=== PATIENT | female | born 1980 | race Caucasian/White ===

== ENCOUNTER 2017-09-21 14:55 | Emergency (ER) | payer MEDICAID, OTHER ==
[~2017-09-21] VITALS: Ht 162.6 cm; Wt 117.9 kg
--- NOTE | 2017-09-21 15:26 | ED General ---
General Chief Complaint: Upper Extremity Stated Complaint: R ARM PAIN/SWELLING/POSS BLOOD CLOT Nursing Triage Note: Pt reports she was seen in ER at [facility] on 09/16 and had multiple IV infusions in R arm. Pt reports increased pain and swelling in R arm since discharge from . Pt states she is worried about a blood clot. Nursing Sepsis Screen: No Definite Risk Source of Information: Patient, Spouse Exam Limitations: No Limitations History of Present Illness Date Seen by Provider: Sep 21, 2017 Time Seen by Provider: 15:26 Initial Comments 37 year old female patient presents to the emergency department with concerns of having a blood clot in the right upper extremity. Patient was seen at the emergency department at [facility] on 09/16 with multiple IV medications given for migraine. Reports the next day she noticed increased pain and swelling to the right forearm. Has been taking ibuprofen without improvement in symptoms. Has not taken anything today for the pain. Timing/Duration: 5-6 Days, Constant Modifying Factors: worse with Medication (no improvement with ibuprofen) Allergies and Home Medications Allergies Coded Allergies: codeine (Unverified Allergy, Unknown, 09/21/17) nitrofurantoin (Unverified Allergy, Unknown, 09/21/17) Patient Home Medication List Home Medication List Reviewed: Yes Review of Systems Constitutional: No chills, No fever, No malaise EENTM: no symptoms reported Respiratory: No cough, No dyspnea on exertion, No orthopnea, No short of breath Cardiovascular: No chest pain, No palpitations Gastrointestinal: no symptoms reported Musculoskeletal: see HPI, joint pain (right forearm pain), joint swelling ( right forearm swelling) Skin: No change in color, No lesions, No lumps Psychiatric/Neurological: Denies Numbness, Denies Paresthesia; Pre-Existing Deficit (chronic migraines); Denies Tingling, Denies Weakness All Other Systems Reviewed Negative Unless Noted: Yes (Negative excepted noted.) Past Iirbwbp-Uagqbq-Wxbtkr Hx Past Med/Social Hx: Reviewed Nursing Past Med/Soc Hx Patient Social History Alcohol Use: Regular Use Recreational Drug Use: No Smoking Status: Current Someday Smoker Type Used: Cigars Recent Foreign Travel: No Contact w/Someone Who Travel: No Recent Infectious Disease Expo: No Recent Hopitalizations: No Seasonal Allergies Seasonal Allergies: No Past Medical History Surgeries: Yes (D&C, wisdom teeth) Appendectomy, Tubal Ligation Respiratory: No Cardiac: No Neurological: Yes Headaches /Migraines Genitourinary: No Gastrointestinal: No Musculoskeletal: No Endocrine: Yes Hypothyroidsim HEENT: No Cancer: No Psychosocial: Yes PTSD, Depression Blood Disorders: No Adverse Reaction/Blood Tranf: No Family Medical History Reviewed Nursing Family Hx No Pertinent Family Hx Physical Exam Vital Signs Vital Signs - First Documented 09/21/17 15:05 Temp 99.4 Pulse 97 Resp 18 B/P (MAP) 153/111 (125) Pulse Ox 94 O2 Delivery Room Air Capillary Refill : Less Than 3 Seconds Height, Weight, BMI Height: 5', 4.00" Weight: 260lbs oz, 117.312871mh Method:Stated ,BMI General Appearance: No Apparent Distress, WD/WN HEENT: PERRL/EOMI, Pharynx Normal Neck: Normal Inspection, Supple Respiratory: Lungs Clear, Normal Breath Sounds, No Accessory Muscle Use, No Respiratory Distress Cardiovascular: Regular Rate, Rhythm, No Murmur, Normal Peripheral Pulses Extremity: Normal Capillary Refill, Normal Range of Motion, Swelling (mild swelling of the right forearm noted with several firm, ropelike superficial veins noted. No evidence of erythema or warmth noted. Tender to palpation. Right Proximal arm is negative.) Neurologic/Psychiatric: Alert, Oriented x3, No Motor/Sensory Deficits, Normal Mood/Affect Skin: Normal Color, Warm/Dry Progress/Results/Core Measures Suspected Sepsis Recent Fever Within 48 Hours: No Infection Criteria Present: Suspected New Infection New/Unexplained Altered Menta: No Sepsis Screen: No Definite Risk SIRS Temperature:99.4 Pulse: 97 Respiratory Rate: 18 Blood Pressure 153 /111 Mean: 125 Results/Orders My Orders Orders - JORGE ALBERTO GARNER Us Venous Upper Ext Rt (09/21/17 15:21) Ibuprofen Tablet (Motrin Tablet) (09/21/17 15:36) Vital Signs/I&O 09/21/17 15:05 Temp 99.4 Pulse 97 Resp 18 B/P (MAP) 153/111 (125) Pulse Ox 94 O2 Delivery Room Air Capillary Refill : Less Than 3 Seconds Blood Pressure Mean: 125 Diagnostic Imaging Diagonstic Imaging: Ultrasound Plain Films/CT/US/NM/MRI: other (right upper extremity) Comments US VENOUS UPPER EXT RT INDICATION: Pain in posterior wrist and hand. EXAMINATION : Right upper extremity venous Doppler, 09/21/2017. FINDINGS: Waveform and spectral analysis of the right upper extremity performed with color Doppler imaging performed. There is nonocclusive thrombus noted within the basilic vein in the upper biceps region. This involves at least 7 cm in length as noted by the principal product manager. There is also focal thrombus within a branch of the basilic vein in the posterior wrist and hand at the site of previous IV. The remaining visualized venous structures appear patent. No other thrombus formation appreciated. IMPRESSION: Thrombus noted within the basilic vein and a branch in the distal basilic vein at the site of previous IV. No other thrombus formation appreciated. Dictated by: Dictated on workstation # [id number] Reviewed: Reviewed by Me (radiology report reviewed by me) Departure Communication (Admissions) diagnostic findings discussed with the patient. plan for dsch to home with f/u as an outpatient with dr. del toro for recheck. Impression Primary Impression: Superficial thrombophlebitis Qualified Codes: I80.8 - Phlebitis and thrombophlebitis of other sites Disposition: HOME, SELF-CARE Condition: Improved Departure-Patient Inst. Referrals: MILAGRO DEL TORO MD (PCP/Family) Primary Care Physician Patient Instructions: Superficial Phlebitis Add. Discharge Instructions: All discharge instructions reviewed with patient and/or family. Voiced understanding. Aspirin 325 mg by mouth twice daily. Naprosyn 500 mg twice daily. Tylenol extra strength rjqs-noh-qciqhaw as directed for pain. Elevate the right arm on pillows above the level of heart. Ice packs or heating pads as needed for pain and swelling. Follow-up with Dr. Del Toro as an outpatient for recheck and possible need for outpatient repeat ultrasound. Call for appointment time Friday. Return to the emergency department for worsened symptoms or any other concerns. JORGE ALBERTO GARNER Sep 21, 2017 15:26
[2017-09-21] MEDS ORDERED: IBUPROFEN 800 MG (MOTRIN) TAB PO STA (15:36)
--- NOTE | 2017-09-21 16:59 | Diagnostic Imaging Report ---
INDICATION: Pain in posterior wrist and hand. EXAMINATION: Right upper extremity venous Doppler, 09/21/2017. FINDINGS: Waveform and spectral analysis of the right upper extremity performed with color Doppler imaging performed. There is nonocclusive thrombus noted within the basilic vein in the upper biceps region. This involves at least 7 cm in length as noted by the party plan sales host/hostess. There is also focal thrombus within a branch of the basilic vein in the posterior wrist and hand at the site of previous IV. The remaining visualized venous structures appear patent. No other thrombus formation appreciated. IMPRESSION: Thrombus noted within the basilic vein and a branch in the distal basilic vein at the site of previous IV. No other thrombus formation appreciated. Dictated by: Dictated on workstation # [id number]
[2017-09-21 17:36] VITALS: BP 153/111
== END 2017-09-21 17:36 | disposition home or self-care (01) ==
LOC: ER 14:58
DX: I80.01 Phlebitis and thrombophlebitis of superficial vessels of right lower extremity (principal); F17.290 Nicotine dependence, other tobacco product, uncomplicated; G43.909 Migraine, unspecified, not intractable, without status migrainosus; E03.9 Hypothyroidism, unspecified; F32.9 Major depressive disorder, single episode, unspecified; F43.10 Post-traumatic stress disorder, unspecified; Z88.5 Allergy status to narcotic agent; Z88.8 Allergy status to other drugs, medicaments and biological substances; Z90.49 Acquired absence of other specified parts of digestive tract; Z98.51 Tubal ligation status

== ENCOUNTER 2018-06-05 13:08 | Emergency (ER) | payer MEDICAID, OTHER ==
[~2018-06-05] VITALS: Ht 162.6 cm; Wt 117.9 kg
[2018-06-05 14:09] LABS: BILIRUBIN,URINE NEGATIVE (NEGATIVE); CLARITY,URINE CLOUDY; COLOR,URINE YELLOW; GLUCOSE, URINE (UA) NEGATIVE (NEGATIVE); KETONES,URINE NEGATIVE (NEGATIVE); LEUKOCYTE ESTERASE ,URINE 3+ (NEGATIVE); NITRITE,URINE POSITIVE (NEGATIVE); PROTEIN,URINE NEGATIVE (NEGATIVE); UROBILINOGEN,URINE 0.2 MG/DL (NORMAL)
[2018-06-05 14:10] LABS: BACTERIA,URINE 4+ /HPF; RBC,URINE 0-2 /HPF; SQUAMOUS EPITHELIAL CELL,UR 25-50 /HPF; WBC,URINE >100 /HPF
[2018-06-05] MEDS ORDERED: SERT100T8 (14:11)
[2018-06-05] MEDS ORDERED: LIOT5TAB3 (14:11)
[2018-06-05] MEDS ORDERED: SUMA100T3 (14:11)
[2018-06-05] MEDS ORDERED: LEVO112T55 (14:11)
[2018-06-05] MEDS ORDERED: TOPI50TA13 (14:11)
[2018-06-05] MEDS ORDERED: LEVO100T7 (14:11)
[2018-06-05] MEDS ORDERED: TOPI25TA10 (14:11)
[2018-06-05] MEDS ORDERED: PROCHLORPERAZINE 10 MG/2ML INJ (COMPAZINE) IV ONE (15:30)
[2018-06-05] MEDS ORDERED: cefTRIAXone FOR IV USE 1,000 MG in WATER (STERILE) FOR INJECTION 10 ML IV ONE (15:30)
[2018-06-05] MEDS ORDERED: NS IV 1000 ML 1,000 ML IV SCH (15:30)
[2018-06-05] MEDS ORDERED: KETOROLAC 30 MG/ML VIAL IVP ONE (15:30)
[2018-06-05] MEDS ORDERED: DEXAMETHASONE 4 MG/ML SDV (DECADRON) IV ONE (15:30)
[2018-06-05] MEDS ORDERED: CEPH-507 PO (16:49)
[2018-06-05] MEDS ORDERED: ONDA4TAB11 PO (16:49)
--- NOTE | 2018-06-05 16:49 | ED GU-Female ---
General Chief Complaint: - Urinary Stated Complaint: HEADACHE; URINARY PAIN Nursing Triage Note: Has had a migraine for the past week. Saw Katy in the office on friday and received shots for migraine that have not helped. Has also recently been treated for UTI and is still having burning with urination. States she had a kidney infection once that her only symptom was a migraine. Nursing Sepsis Screen: No Definite Risk Source: patient Exam Limitations: no limitations History of Present Illness Date Seen by Provider: Jun 05, 2018 Time Seen by Provider: 16:43 Initial Comments Patient is a 37-year-old female with history of traumatic brain injury, chronic daily headaches/migraines who presents with multiple medical complaints. Patient reports persistent headache, dull, aching despite taking her nonnarcotic home medications. She also reports nausea and malaise, urinary frequency and urgency. She recently completed a 3 day course of Bactrim. She has had prior migraines triggered by urinary tract infections. No fever, chills , sweats. No chest pain, cough, abdominal pain. No other acute symptoms or complaints. Timing/Duration: just prior to arrival Severity/Quality: mild, moderate Radiation: left flank Associated Symptoms: dysuria Allergies and Home Medications Allergies Coded Allergies: codeine (Unverified Allergy, Unknown, 06/05/18) nitrofurantoin (Unverified Allergy, Unknown, 09/21/17) Patient Home Medication List Home Medication List Reviewed: Yes Review of Systems Review of Systems Constitutional: see HPI EENTM: see HPI Respiratory: see HPI Cardiovascular: see HPI Gastrointestinal: see HPI Genitourinary: see HPI Musculoskeletal: see HPI Skin: see HPI Psychiatric/Neurological: See HPI Past Ougahjm-Hwozwy-Kputbm Hx Patient Social History Alcohol Use: Denies Use Recreational Drug Use: No Smoking Status: Never a Smoker Type Used: Cigars Recent Foreign Travel: No Contact w/Someone Who Travel: No Recent Infectious Disease Expo: No Recent Hopitalizations: No Physical Abuse: No Sexual Abuse: No Mistreated: No Seasonal Allergies Seasonal Allergies: No Past Medical History Surgeries: Yes (D&C, wisdom teeth) Appendectomy, Tubal Ligation Respiratory: No Cardiac: No Neurological: Yes Headaches /Migraines, Traumatic Brain Injury Genitourinary: No Gastrointestinal: No Musculoskeletal: No Endocrine: Yes Hypothyroidsim HEENT: No Cancer: No Psychosocial: Yes PTSD, Depression Blood Disorders: No Adverse Reaction/Blood Tranf: No Family Medical History No Pertinent Family Hx Physical Exam Vital Signs Vital Signs - First Documented 06/05/18 13:30 Temp 98.6 Pulse 101 Resp 20 B/P (MAP) 150/92 (111) Pulse Ox 98 Capillary Refill : Less Than 3 Seconds Height, Weight, BMI Height: 5'4.00" Weight: 260lbs. oz. 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 II-XII nml as tested, no motor/sensory deficits, alert, normal mood/affect Skin: normal color Focused Exam Sepsis Stage: Ruled Out Progress/Results/Core Measures Suspected Sepsis Recent Fever Within 48 Hours: No Infection Criteria Present: None New/Unexplained Altered Menta: No Sepsis Screen: No Definite Risk SIRS Temperature:98.6 Pulse: 101 Respiratory Rate: 20 Blood Pressure 150 /92 Mean: 111 Results/Orders Lab Results Laboratory Tests Test 06/05/18 13:14 Range/Units Urine Color YELLOW Urine Clarity CLOUDY Urine pH 6.0 5-9 Urine Specific [place] 1.015 L 1.016-1.022 Urine Protein NEGATIVE NEGATIVE Urine Glucose (UA) NEGATIVE NEGATIVE Urine Ketones NEGATIVE NEGATIVE Urine Nitrite POSITIVE H NEGATIVE Urine Bilirubin NEGATIVE NEGATIVE Urine Urobilinogen 0.2 NORMAL MG/DL Urine Leukocyte Esterase 3+ H NEGATIVE Urine RBC (Auto) 1+ H NEGATIVE Urine RBC 0-2 /HPF Urine WBC >100 H /HPF Urine Squamous Epithelial Cells 25-50 H /HPF Urine Crystals NONE /LPF Urine Bacteria 4+ /HPF Urine Casts NONE /LPF Urine Mucus SMALL H /LPF Urine Culture Indicated YES Urine Test NEGATIVE NEGATIVE My Orders Orders - LINDA LR DO Ua Culture If Indicated (06/05/18 13:44) Hcg,Qualitative Urine (06/05/18 13:50) Urine Culture (06/05/18 13:14) Ns Iv 1000 Ml (Sodium Chloride 0.9%) (06/05/18 15:30) Ceftriaxone For Iv Use (Rocephin For I (06/05/18 15:30) Prochlorperazine Injection (Compazine In (06/05/18 15:30) Dexamethasone Injection (Decadron Inject (06/05/18 15:30) Ketorolac Injection (Toradol Injection) (06/05/18 15:30) Medications Given in ED Current Medications Medications Dose Ordered Sig/Jeramy Route Start Time Stop Time Status Last Admin Dose Admin Ceftriaxone Sodium 1000 mg/ Sterile Water 10 ml @ 200 mls/hr ONCE ONCE IV 06/05/18 15:30 06/05/18 15:32 DC 06/05/18 16:23 200 MLS/HR Dexamethasone Sodium Phosphate 8 mg ONCE ONCE IV 06/05/18 15:30 06/05/18 15:31 DC 06/05/18 16:16 8 MG Ketorolac Tromethamine 30 mg ONCE ONCE IVP 06/05/18 15:30 06/05/18 15:31 DC 06/05/18 16:16 30 MG Prochlorperazine Edisylate 10 mg ONCE ONCE IV 06/05/18 15:30 06/05/18 15:31 DC 06/05/18 16:16 10 MG Vital Signs/I&O 06/05/18 13:30 Temp 98.6 Pulse 101 Resp 20 B/P (MAP) 150/92 (111) Pulse Ox 98 Capillary Refill : Less Than 3 Seconds Blood Pressure Mean: 111 Departure Communication (Admissions) IV abx, fluids, antiemetics given with significant improvement symptoms Impression Primary Impression: Urinary tract infection Additional Impression: Intractable migraine Disposition: HOME, SELF-CARE Condition: Improved Departure-Patient Inst. Referrals: MILAGRO DEL TORO MD (PCP/Family) Primary Care Physician Patient Instructions: Urinary Tract Infection, Adult (DC) Scripts Ondansetron (Ondansetron Odt) 4 Mg Tab.rapdis 4 MG PO Q6H PRN for NAUSEA/VOMITING, #10 TAB Prov: LINDA LR DO 06/05/18 Cephalexin (Keflex) 500 Mg Capsule 500 MG PO TID, #21 CAP Prov: LINDA LR DO 06/05/18 Work/School Note: Family Work Note Patient Received Medical Care In the Emergency Department On: Jun 05, 2018 Patient Will Be Able to Return to Work/School On: Jun 05, 2018 Patient Restrictions: Please excuse patient from school until 06/08/18 LINDA LR DO Jun 05, 2018 16:49
[2018-06-05 17:19] VITALS: BP 134/84
== END 2018-06-05 17:20 | disposition home or self-care (01) ==
LOC: EDUNIT# 13:08 → ER FS 13:11
DX: N39.0 Urinary tract infection, site not specified (principal); G43.919 Migraine, unspecified, intractable, without status migrainosus; E03.9 Hypothyroidism, unspecified; F43.10 Post-traumatic stress disorder, unspecified; F32.9 Major depressive disorder, single episode, unspecified; Z88.5 Allergy status to narcotic agent; Z88.8 Allergy status to other drugs, medicaments and biological substances; Z90.49 Acquired absence of other specified parts of digestive tract; Z98.51 Tubal ligation status; Z87.820 Personal history of traumatic brain injury
CPT/HCPCS: 81000; 84703; 87077; 87088; 87186; 99282

== ENCOUNTER 2019-05-10 19:13 | Emergency (ER) | payer OTHER, MEDICAID ==
[~2019-05-10] VITALS: Ht 162.6 cm; Wt 119.7 kg
[~2019-05-10 19:13] MED LIST: CEPH-507 PO; LEVO100T7; LEVO112T55; LIOT5TAB10; ONDA4TAB11 PO; SERT100T8; SUMA100T3; TOPI25TA10; TOPI50TA13
--- NOTE | 2019-05-10 19:38 | ED Fall/Injury ---
General Chief Complaint: Hip/Pelvic Problems Stated Complaint: FELL,KNOT ON HIP/PAIN Source: patient History of Present Illness Date Seen by Provider: May 10, 2019 Time Seen by Provider: 19:16 Initial Comments 38-year-old female presenting with complaints of left hip and shoulder pain. She had slipped going down steps leaving a trailer a little after 5 PM tonight. This was while she was working for [employer]. She states that she did not hit her head or lose consciousness. She has pain and bruising to her left posterior shoulder and left posterior hip. She is able to walk and move. Her stiffness and pain is increasing as the time gets further away from the accident. 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 She has not taken anything for pain at home. She is on blood thinners of Plavix and aspirin so she tends to bruise easy anyway. Allergies and Home Medications Allergies Coded Allergies: codeine (Unverified Allergy, Unknown, 06/05/18) nitrofurantoin (Unverified Allergy, Unknown, 09/21/17) Home Medications Cephalexin 500 Mg Capsule, 500 MG PO TID Prescribed by: LINDA LR on 06/05/18 1649 Ondansetron 4 Mg Tab.rapdis, 4 MG PO Q6H PRN for NAUSEA/VOMITING Prescribed by: LINDA LR on 06/05/18 1649 Patient Home Medication List Home Medication List Reviewed: Yes Review of Systems Review of Systems Constitutional: No chills, No dizziness, No fever Eyes: Denies Blurred Vision, Denies Pain, Denies Vision Changes Ears, Nose, Mouth, Throat: denies ear pain, denies ear discharge, denies nose discharge, denies epistaxis Respiratory: No cough, No short of breath Cardiovascular: No chest pain, No syncope Gastrointestinal: no symptoms reported Genitourinary: no symptoms reported Musculoskeletal: see HPI, joint pain (left hip and shoulder pain) Skin: change in color (bruising to left hip and shoulder) Psychiatric/Neurological: Denies Headache, Denies Numbness, Denies Paresthesia Past Qziseyo-Qejiqs-Pxtopm Hx Past Med/Social Hx: Reviewed Nursing Past Med/Soc Hx Patient Social History Type Used: Cigars Recent Foreign Travel: No Contact w/Someone Who Travel: No Recent Hopitalizations: No Physical Abuse: No Sexual Abuse: No Mistreated: No Fear: No Seasonal Allergies Seasonal Allergies: No Past Medical History Surgeries: Yes (D&C, wisdom teeth) Appendectomy, Tubal Ligation Respiratory: No Cardiac: No Neurological: Yes Headaches /Migraines, Traumatic Brain Injury Genitourinary: No Gastrointestinal: No Musculoskeletal: No Endocrine: Yes Hypothyroidsim HEENT: No Cancer: No Psychosocial: Yes PTSD, Depression Blood Disorders: No Adverse Reaction/Blood Tranf: No Family Medical History No Pertinent Family Hx Physical Exam Vital Signs Vital Signs - First Documented 05/10/19 05/10/19 19:18 20:33 Temp 36.4 Pulse 75 Resp 20 B/P (MAP) 151/90 (110) Pulse Ox 100 O2 Delivery Room Air Capillary Refill : Height, Weight, BMI Height: 5'4.00" Weight: 260lbs. oz. 117.080331qb; BMI Method:Stated General Appearance: WD/WN, no apparent distress HEENT: PERRL/EOMI, normal ENT inspection, pharynx normal Neck: non-tender, full range of motion, supple Cardiovascular: normal peripheral pulses, regular rate, rhythm Respiratory: chest non-tender, lungs clear, normal breath sounds, no respiratory distress, no accessory muscle use Gastrointestinal: normal bowel sounds, non tender, soft, no pulsatile mass Back: no vertebral tenderness, muscle spasm (to left side of lumbar spine and low back) Extremities: normal range of motion, normal capillary refill, other (tender to palpation on posterior aspect of left arm and left hip. 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 nml as tested, no motor/sensory deficits, alert, normal mood/affect, oriented x 3 Skin: warm/dry, ecchymosis (left hip and shoulder) Tonny Coma Score Best Eye Response: (4) Open Spontaneously Best Verbal Response: (5) Oriented Best Motor Response: (6) Obeys Commands Jackson Total: 15 Progress/Results/Core Measures Results/Orders My Orders Orders - BARRIE JENSEN MD Acetaminophen Tablet (Tylenol Tablet) (05/10/19 19:39) Ice: Apply To Affected Area (05/10/19 20:21) John Bandage (05/10/19 20:21) Vital Signs/I&O 2/24/20 2/24/20 19:18 20:33 Temp 36.4 Pulse 75 89 Resp 20 18 B/P (MAP) 151/90 (110) 129/88 Pulse Ox 100 O2 Delivery Room Air Room Air Progress Progress Note : Progress Note On exam she has no bony pain and seems to be all muscular pain and bruising. She has good range of motion of her joints where she has injury. Counseled on symptomatic care and treatment. Advised to rest for the next 24-36 hours. Use ice and compression to help with pain and bruising. Counseled to follow-up through work comp or primary for continued concerns Departure Impression Primary Impression: Contusion of left upper arm, initial encounter Additional Impressions: Contusion of left hip, initial encounter Acute lumbar myofascial strain Qualified Codes: S39.012A - Strain of muscle, fascia and tendon of lower back, initial encounter Fall down stairs Qualified Codes: W10.8XXA - Fall (on) (from) other stairs and steps, initial encounter Traumatic hematoma of left hip Qualified Codes: S70.02XA - Contusion of left hip, initial encounter Traumatic hematoma of left upper arm Qualified Codes: S40.022A - Contusion of left upper arm, initial encounter Disposition: HOME, SELF-CARE Condition: Stable Departure-Patient Inst. Decision time for Depature: 20:23 Referrals: MILAGRO DEL TORO MD (PCP/Family) Primary Care Physician Patient Instructions: Contusion (DC), HEMATOMA, Low Back Pain (DC), Muscle Strain (DC) Add. Discharge Instructions: Use ice 15-20 minutes every few hours as needed to help with pain and bruising. Acetaminophen to help with pain Try to rest and take it easy in the next 24 to 36 hours. Check back with Work Comp clinic for continued concerns/problems. All discharge instructions reviewed with patient and/or family. Voiced understanding. Work/School Note: Work Release Form Date Seen in the Emergency Department: May 10, 2019 Return to Work: May 12, 2019 Restrictions: Follow Up With [facility] Other Restrictions Listed Below: Ice and compression to hematoma on left arm and hip. Rest on 05/11. Images Extremities-Lower 1 - Ecchymosis (hematoma and bruising to the left lateral hip) Extremities-Upper 1 - Ecchymosis (hematoma and bruising to the left posterior upper arm) BARRIE JENSEN MD May 10, 2019 19:38
[2019-05-10] MEDS ORDERED: ACETAMINOPHEN 500 MG TAB (TYLENOL) PO STA (19:39)
--- NOTE | 2019-05-10 19:43 | NUR ---
THIS RN SPOKE ON THE PHONE WITH ANJEL PARSONS, THE PT'S SUPERVISER, AND WAS INFORMED THAT A URINE DRUG SCREEN IS NOT REQUIRED.
--- NOTE | 2019-05-10 20:06 | NUR ---
Federica parker in [facility] - 05/10/19 at 2029 by JOHN PT IN VIDEO CONFERENCE WITH [employer] [facility]
[2019-05-10 20:33] VITALS: BP 129/88
== END 2019-05-10 20:33 | disposition home or self-care (01) ==
LOC: EDUNIT# 19:13 → ER FS 19:14
DX: S39.012A Strain of muscle, fascia and tendon of lower back, initial encounter (principal); S40.022A Contusion of left upper arm, initial encounter; S70.02XA Contusion of left hip, initial encounter; Z88.2 Allergy status to sulfonamides; Z88.1 Allergy status to other antibiotic agents; Z87.820 Personal history of traumatic brain injury; W10.9XXA Fall (on) (from) unspecified stairs and steps, initial encounter
CPT/HCPCS: 99283

== ENCOUNTER 2019-06-08 10:47 | Emergency (ER) | payer OTHER, MEDICAID ==
[~2019-06-08] VITALS: Ht 154 cm; Wt 117.9 kg
--- OUTSIDE RECORDS SUMMARY | 2019-06-08 11:07 | XMS REPORT | Continuity of Care Document ---
Author Organization Unknown Address Unknown Phone Unavailable Allergies There is no data. Medications There is no data. Problems Date Dx Coded Attending Type Code Diagnosis Diagnosed By 03/26/2019 Zack Owens MD N30.90 Recurrent bacterial cystitis 03/26/2019 Zack Owens MD E66.01 Obesity Class III (BMI >=40) 03/26/2019 Zack Owens MD Z68.42 BMI 45-49.9 Procedures There is no data. Results There is no data. Encounters ACCT No. Visit Date/Time Discharge Status Pt. Type Provider Facility Loc./Unit Complaint [id number] 05/14/2019 14:04:01 [facility] Unknown Zack Owens MD
[2019-06-08] MEDS ORDERED: methylPREDNISolone 125 MG (Solu-MEDROL) VIAL IVP ONE (11:30)
[2019-06-08] MEDS ORDERED: NS IV 1000 ML 1,000 ML IV SCH (11:30)
[2019-06-08 11:42] LABS: BASOPHILS % (AUTO) 1 % (0-10); EOSINOPHILS # (AUTO) 0.1 10^3/uL (0.0-0.3); EOSINOPHILS % (AUTO) 2 % (0-10); HEMATOCRIT 38 % (35-52); HEMOGLOBIN 11.7 G/DL (11.5-16.0); LYMPHOCYTES # (AUTO) 1.6 X 10^3 (1.0-4.0); LYMPHOCYTES % (AUTO) 29 % (12-44); MEAN CORPUSCULAR HEMOGLOBIN 23 PG (25-34); MEAN CORPUSCULAR HGB CONC 31 G/DL (32-36); MEAN CORPUSCULAR VOLUME 74 FL (80-99); MEAN PLATELET VOLUME 9.9 FL (7.4-10.4); MONOCYTES # (AUTO) 0.6 X 10^3 (0.0-1.0); MONOCYTES % (AUTO) 10 % (0-12); NEUTROPHILS # (AUTO) 3.1 X 10^3 (1.8-7.8); NEUTROPHILS % (AUTO) 58 % (42-75); PLATELET COUNT 318 10^3/uL (130-400); RED CELL DISTRIBUTION WIDTH 15.7 % (10.0-14.5); WHITE BLOOD COUNT 5.4 10^3/uL (4.3-11.0)
--- NOTE | 2019-06-08 11:44 | ED Cough/URI ---
General Chief Complaint: Respiratory Problems Stated Complaint: COUGH; DIFFICULTY BREATHING Nursing Triage Note: clinic sat or friday diag. with bronchitis, given zpack, inhaler, steroids. started that day. states cough, chest congestion and pain worsening. fever highest at home is 99. tested for flu and strept, both negative Sepsis Screen: No Definite Risk Source: patient Exam Limitations: no limitations History of Present Illness Date Seen by Provider: Jun 08, 2019 Time Seen by Provider: 11:15 Initial Comments The patient is a 38-year-old female who presents for evaluation of cough and shortness of breath which started on Friday, 4 days ago. She states that she was having these symptoms over the weekend and went to an urgent care where she was diagnosed with bronchitis, given a Z-Enrique, prednisone, and an inhaler. She states that she has been using those over the weekend but they have not been helping. She denies a fever and states that the highest temperature she noted at home was 99. She was tested for influenza and strep pharyngitis over the weekend and both were negative. 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 Timing/Duration: other (4 days ago) Severity/Quality: dry cough Prior Episodes/Possible Cause: no prior episodes Modifying Factors: Improves With Albuterol Inhaler (states not helping) Associated Symptoms: cough, shortness of breath Allergies and Home Medications Allergies Coded Allergies: codeine (Unverified Allergy, Unknown, 06/05/18) nitrofurantoin (Unverified Allergy, Unknown, 09/21/17) Home Medications Cephalexin 500 Mg Capsule, 500 MG PO TID Prescribed by: LINDA LR on 06/05/18 1649 Ondansetron 4 Mg Tab.rapdis, 4 MG PO Q6H PRN for NAUSEA/VOMITING Prescribed by: LINDA LR on 06/05/18 1649 Patient Home Medication List Home Medication List Reviewed: Yes Review of Systems Review of Systems Constitutional: no symptoms reported EENTM: no symptoms reported Respiratory: cough, short of breath Cardiovascular: no symptoms reported Gastrointestinal: no symptoms reported Genitourinary: no symptoms reported Musculoskeletal: no symptoms reported Skin: no symptoms reported Psychiatric/Neurological: No Symptoms Reported Hematologic/Lymphatic: No Symptoms Reported Immunological/Allergic: no symptoms reported All Other Systems Reviewed Negative Unless Noted: Yes Past Qnyesof-Rtnyfa-Cdurke Hx Past Med/Social Hx: Reviewed Nursing Past Med/Soc Hx Patient Social History Alcohol Use: Occasionally Uses Recreational Drug Use: No Smoking Status: Never a Smoker Type Used: Cigars 2nd Hand Smoke Exposure: No Recent Foreign Travel: No Contact w/Someone Who Travel: No Recent Infectious Disease Expo: No Recent Hopitalizations: No Physical Abuse: No Sexual Abuse: No Mistreated: No Immunizations Up To Date Date of Influenza Vaccine: Dec 15, 2018 Seasonal Allergies Seasonal Allergies: No Past Medical History Surgeries: Yes (D&C, wisdom teeth) Appendectomy, Tubal Ligation Respiratory: No Cardiac: No Neurological: Yes (TBI WITH SHUNT PLACEMENT) Headaches /Migraines, Traumatic Brain Injury Genitourinary: No Gastrointestinal: No Musculoskeletal: No Endocrine: Yes Hypothyroidsim HEENT: No Cancer: No Psychosocial: Yes PTSD, Depression Integumentary: No Blood Disorders: No Adverse Reaction/Blood Tranf: No Family Medical History No Pertinent Family Hx Physical Exam Vital Signs - First Documented 06/08/19 11:02 Temp 36.7 Pulse 86 Resp 20 B/P (MAP) 139/81 (100) Pulse Ox 94 O2 Delivery Room Air Capillary Refill : Less Than 3 Seconds Height: 5'4.00" Weight: 260lbs. oz. 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, no motor/sensory deficits, alert, normal mood/affect, oriented x 3 Skin: normal color, warm/dry Progress/Results/Core Measures Suspected Sepsis Recent Fever Within 48 Hours: No Infection Criteria Present: None New/Unexplained Altered Menta: No Sepsis Screen: No Definite Risk SIRS Temperature: Pulse: 86 Respiratory Rate: 20 Laboratory Tests 06/08/19 11:20: White Blood Count 5.4 Blood Pressure 139 /81 Mean: 100 Laboratory Tests 06/08/19 11:20: Creatinine 0.96, Platelet Count 318, Total Bilirubin 0.2 Results/Orders Lab Results Laboratory Tests Test 06/08/19 11:20 Range/Units White Blood Count 5.4 4.3-11.0 10^3/uL Red Blood Count 5.16 4.35-5.85 10^6/uL Hemoglobin 11.7 11.5-16.0 G/DL Hematocrit 38 35-52 % Mean Corpuscular Volume 74 L 80-99 FL Mean Corpuscular Hemoglobin 23 L 25-34 PG Mean Corpuscular Hemoglobin Concent 31 L 32-36 G/DL Red Cell Distribution Width 15.7 H 10.0-14.5 % Platelet Count 318 130-400 10^3/uL Mean Platelet Volume 9.9 7.4-10.4 FL Neutrophils (%) (Auto) 58 42-75 % Lymphocytes (%) (Auto) 29 12-44 % Monocytes (%) (Auto) 10 0-12 % Eosinophils (%) (Auto) 2 0-10 % Basophils (%) (Auto) 1 0-10 % Neutrophils # (Auto) 3.1 1.8-7.8 X 10^3 Lymphocytes # (Auto) 1.6 1.0-4.0 X 10^3 Monocytes # (Auto) 0.6 0.0-1.0 X 10^3 Eosinophils # (Auto) 0.1 0.0-0.3 10^3/uL Basophils # (Auto) 0.0 0.0-0.1 10^3/uL D-Dimer 0.25 0.00-0.49 UG/ML Sodium Level 139 135-145 MMOL/L Potassium Level 3.5 L 3.6-5.0 MMOL/L Chloride Level 106 98-107 MMOL/L Carbon Dioxide Level 21 21-32 MMOL/L Anion Gap 12 5-14 MMOL/L Blood Urea Nitrogen 5 L 7-18 MG/DL Creatinine 0.96 0.60-1.30 MG/DL Estimat Glomerular Filtration Rate > 60 BUN/Creatinine Ratio 5 Glucose Level 92 70-105 MG/DL Calcium Level 8.5 8.5-10.1 MG/DL Corrected Calcium 8.4 L 8.5-10.1 MG/DL Total Bilirubin 0.2 0.1-1.0 MG/DL Aspartate Amino Transf (AST/SGOT) 16 5-34 U/L Alanine Aminotransferase (ALT/SGPT) 14 0-55 U/L Alkaline Phosphatase 83 40-136 U/L Troponin I < 0.30 <0.30 NG/ML Pro-B-Type Natriuretic Peptide 158.2 H <75.0 PG/ML Total Protein 7.2 6.4-8.2 GM/DL Albumin 4.1 3.2-4.5 GM/DL My Orders Orders - MARY HERNANDEZ DO Cbc With Automated Diff (06/08/19 11:17) Comprehensive Metabolic Panel (06/08/19 11:17) Troponin I Fs (06/08/19 11:17) Probnp Fs (06/08/19 11:17) Continuous Ekg Monitoring (06/08/19 11:17) Ekg Tracing (06/08/19 11:17) Ns Iv 1000 Ml (Sodium Chloride 0.9%) (06/08/19 11:30) Chest 1 View Ap/Pa Only (06/08/19 11:17) Continuous Pulse Ox (06/08/19 11:17) Fibrin Degradation Products (06/08/19 11:17) Blood Culture (06/08/19 11:17) Methylprednisolone Sod Succ (Solu-Medrol (06/08/19 11:30) Medications Given in ED Current Medications Medications Dose Ordered Sig/Jeramy Route Start Time Stop Time Status Last Admin Dose Admin Methylprednisolone Sodium Succinate 125 mg ONCE ONCE IVP 06/08/19 11:30 06/08/19 11:31 DC 06/08/19 11:49 125 MG Vital Signs/I&O 06/08/19 11:02 Temp 36.7 Pulse 86 Resp 20 B/P (MAP) 139/81 (100) Pulse Ox 94 O2 Delivery Room Air Capillary Refill : Less Than 3 Seconds Blood Pressure Mean: 100 Progress Note : Progress Note @1153 - The patient was previously tested for influenza and strep throat which are both negative. She states that the medication she was prescribed over the weekend are not helping with her cough or shortness of breath. 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 She has been instructed to self quarantine for 14 days along with her and family. She is afebrile and well- appearing at this time. Encouraged the patient to continue taking the antibiotic she was previously prescribed. @1225 - patient updated on lab and imaging results. Workup today fails to reveal any emergent pathology. Advised the patient to self quarantine for 14 days and to follow-up with her doctor by calling them in the next 1-2 days. She should continue to actually take the prescribed medicine such as the inhaler, antibiotics, and steroids. She is in no distress at this time, afebrile, and appears to be breathing normally. Diagnostic Imaging Diagonstic Imaging: Xray Comments [facility]. [place], [place] NAME: ALIZA SUAREZ [facility] REC#: [id number] PT STATUS: REG ER : 1980 PHYSICIAN: MARY HERNANDEZ DO ADMIT DATE: 06/08/19/ER FS Draft Date of Exam:06/08/19 CHEST 1 VIEW AP/PA ONLY INDICATION: Cough. Chest congestion. Fever. COMPARISON: None. FINDINGS: Single frontal view of the chest demonstrates normal heart size and pulmonary vascularity. Evaluation of lung lind suggest 7 mm micronodule of the right upper lobe. Otherwise, lungs are clear. No large pleural effusion or pneumothorax is seen. The visualized osseous structures show no acute abnormalities. IMPRESSION: 1. No evidence of failure or focal infiltrate. 2. Potential micronodule of the right upper lobe. Further characterization dedicated CT chest is recommended and could be performed on a nonemergent basis. Dictated on workstation # [id number] Dict: 06/08/19 1142 Trans: 06/08/19 1155 [facility] [id number] Interpreted by: YARIEL MACHADO MD Electronically signed by: Departure Impression Primary Impression: Cough Additional Impression: Dyspnea Disposition: 01 HOME, SELF-CARE Condition: Stable Departure-Patient Inst. Decision time for Depature: 12:31 Referrals: MILAGRO DEL TORO MD (PCP/Family) Primary Care Physician Patient Instructions: Acute Bronchitis, Cough in Adults Add. 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 The test can take several days to result. You need to self quarantine for the next 14 days. You had no fever today and your oxygen level was 100% on room air which is normal. Return to the Emergency Department immediately for difficulty breathing, new or worsening symptoms. Scripts Guaifenesin (Guaifenesin) 400 Mg Tablet 400 MG PO Q8H PRN for COUGH for 7 Days, #20 TAB Prov: MARY HERNANDEZ DO 06/08/19 Benzonatate (TESSALON PERLES) 100 Mg Capsule 100 MG PO Q6H PRN for COUGH for 7 Days, #20 CAP Prov: MARY HERNANDEZ DO 06/08/19 MARY HERNANDEZ DO Jun 08, 2019 11:43
--- NOTE | 2019-06-08 11:57 | Diagnostic Imaging Report ---
INDICATION: Cough. Chest congestion. Fever. COMPARISON: None. FINDINGS: Single frontal view of the chest demonstrates normal heart size and pulmonary vascularity. Evaluation of lung lind suggest 7 mm micronodule of the right upper lobe. Otherwise, lungs are clear. No large pleural effusion or pneumothorax is seen. The visualized osseous structures show no acute abnormalities. IMPRESSION: 1. No evidence of failure or focal infiltrate. 2. Potential micronodule of the right upper lobe. Further characterization dedicated CT chest is recommended and could be performed on a nonemergent basis. Dictated by: Dictated on workstation # [id number]
[2019-06-08 12:11] LABS: SODIUM 139 MMOL/L (135-145)
[2019-06-08 12:12] LABS: ALANINE AMINOTRANSFERASE 14 U/L (0-55); ALBUMIN 4.1 GM/DL (3.2-4.5); ALKALINE PHOSPHATASE 83 U/L (40-136); BILIRUBIN,TOTAL 0.2 MG/DL (0.1-1.0); BUN/CREATININE RATIO 5; CALCIUM 8.5 MG/DL (8.5-10.1); CARBON DIOXIDE 21 MMOL/L (21-32); CHLORIDE 106 MMOL/L (98-107); CREATININE SERUM 0.96 MG/DL (0.60-1.30); GFR ESTIMATED > 60; GLUCOSE 92 MG/DL (70-105); POTASSIUM 3.5 MMOL/L (3.6-5.0); TOTAL PROTEIN 7.2 GM/DL (6.4-8.2)
[2019-06-08] MEDS ORDERED: GUAI400T86 PO (12:37)
[2019-06-08] MEDS ORDERED: BENZ100C18 PO (12:37)
[2019-06-08 12:50] VITALS: BP 128/72
== END 2019-06-08 12:52 | disposition home or self-care (01) ==
LOC: EDUNIT# 10:47 → ER FS 10:49
DX: R05 Cough (principal); R06.00 Dyspnea, unspecified; E03.9 Hypothyroidism, unspecified; F31.9 Bipolar disorder, unspecified; F43.10 Post-traumatic stress disorder, unspecified
CPT/HCPCS: 36415; 71045; 80053; 83880; 84484; 85025; 85379; 87040; 87635

== ENCOUNTER → 2020-03-20 | Outpatient (CLI) | payer MEDICAID, OTHER ==
[~2020-03-20] MED LIST changes: +BENZ100C18 PO; +CATHETER FLUSH 10 ML SYR IV PRN; +GUAI400T86 PO; +HOLD METFORMIN - RECEIVED CONTRAST 20 ML VIAL IV SCH; +IOHEXOL 350 MG/ML 100 ML (OMNIPAQUE 350) VIAL IV ONE; +NS 100 ML (IVPB) BAG IV ONE
--- NOTE | 2020-03-20 12:23 | Diagnostic Imaging Report ---
PROCEDURE: CT neck soft tissue with contrast. TECHNIQUE: Multiple contiguous axial images were obtained through the neck after the administration of contrast. Auto Exposure Controls were utilized during the CT exam to meet ALARA standards for radiation dose reduction. INDICATION: Left-sided neck swelling. Tonsillitis. COMPARISON: None. FINDINGS: Cervical lymphadenopathy is visualized bilaterally, greatest in the left cervical lymph node chain in the area of palpable abnormality with a marker lymph node in the left level II station measuring 2.3 x 2.2 cm. The posterior nasopharynx and oropharynx demonstrate appropriate symmetry. There is no displacement of the parapharyngeal fat planes. There is no abnormal process evident within the prevertebral or retropharyngeal space. There is no evidence of abnormal thickening of the epiglottis or aryepiglottic folds. The vocal folds appear symmetric. The parotid, submandibular and thyroid gland are unremarkable. No focal inflammatory changes are demonstrated. No soft tissue mass or fluid collection demonstrated. The vascular structures the neck demonstrate no evidence of high-grade stenosis on this nondedicated exam. The visualized lung apices are clear. The visualized intracranial contents demonstrate no evidence of pathologic intracranial enhancement or intracranial mass effect. A stent is visualized in the right transverse sinus. Visualized orbital contents are unremarkable. The visualized paranasal sinuses are clear. The mastoids and middle ears are clear. No acute osseous abnormality in the cervical spine. IMPRESSION: 1. Pathologically enlarged cervical lymphadenopathy bilaterally, greatest on the left in the area of palpable abnormality. These findings can be seen with lymphoma. Lymph node involvement in metastatic disease is also a consideration. Reactive cervical lymphadenopathy due to infection or inflammatory process may also have this appearance. Recommend correlation with patient history and symptoms and follow-up as indicated. 2. No evidence of mass or fluid collection in the aerodigestive tract. No airway stenosis. Dictated by: Dictated on workstation # [id number]
== END ==
LOC: RAD 10:00
PROVIDERS: ATTEND Nurse Practitioner
DX: J03.90 Acute tonsillitis, unspecified (principal); R59.0 Localized enlarged lymph nodes
CPT/HCPCS: 70491

== ENCOUNTER 2020-08-18 13:59 | Emergency (ER) | payer BC, OTHER ==
[~2020-08-18] VITALS: Ht 162 cm; Wt 117.9 kg
[~2020-08-18 13:59] MED LIST changes: -CATHETER FLUSH 10 ML SYR IV PRN; -HOLD METFORMIN - RECEIVED CONTRAST 20 ML VIAL IV SCH; -IOHEXOL 350 MG/ML 100 ML (OMNIPAQUE 350) VIAL IV ONE; -NS 100 ML (IVPB) BAG IV ONE; +SERT-414; -SERT100T8
--- NOTE | 2020-08-18 14:09 | ED EENT ---
History of Present Illness General Chief Complaint: Eye Problems Stated Complaint: ALTERED VISION; HEADACHE; NECK PAIN Source: patient Exam Limitations: clinical condition History of Present Illness Date Seen by Provider: Aug 18, 2020 Time Seen by Provider: 14:09 Initial Comments Patient is a 39-year-old female presents with nasal congestion, rhinorrhea, sinus drainage and right ear pain and swollen cervical lymph nodes for the past several days. She states that she is also has a headache and is seeing spots in her eyes. She does report history of migraine headaches. She reports nausea without vomiting. No neck stiffness or rash. No fever. No other acute symptoms or complaints. Patient was treated by her PCP earlier this week and placed on Cipro which she is taking. She was evaluated by her PCP prior to coming to the emergency department and was referred for further treatment. She denies neck and back pain, extremity weakness loss of sensation. No cough, chest pain palpitations or shortness of breath. No other acute symptoms or complaints. Timing/Duration: gradual Severity: moderate Location: other Prearrival Treatment: other Modifying Factors: Improves With Other Associated Symptoms: other Allergies and Home Medications Allergies Coded Allergies: codeine (Unverified Allergy, Unknown, 06/05/18) nitrofurantoin (Unverified Allergy, Unknown, 09/21/17) Home Medications Benzonatate 100 Mg Capsule, 100 MG PO Q6H PRN for COUGH Prescribed by: MARY HERNANDEZ on 06/08/19 1237 Cephalexin 500 Mg Capsule, 500 MG PO TID Prescribed by: LINDA LR on 06/05/18 1649 Guaifenesin 400 Mg Tablet, 400 MG PO Q8H PRN for COUGH Prescribed by: MARY HERNANDEZ on 06/08/19 1237 Ondansetron 4 Mg Tab.rapdis, 4 MG PO Q6H PRN for NAUSEA/VOMITING Prescribed by: LINDA LR on 06/05/18 1649 Patient Home Medication List Home Medication List Reviewed: Yes Review of Systems Review of Systems Constitutional: see HPI Eyes: See HPI Ears: See HPI Nose: see HPI Mouth: see HPI Throat: see HPI Cardiovascular: see HPI Gastrointestinal: see HPI Musculoskeletal: see HPI Skin: see HPI Neurological: See HPI Hematologic/Lymphatic: See HPI Immunological/Allergic: see HPI Past Tcdclsq-Fxkbdn-Igioix Hx Past Med/Social Hx: Reviewed Nursing Past Med/Soc Hx Patient Social History Type Used: Cigars 2nd Hand Smoke Exposure: No Recent Hopitalizations: No Immunizations Up To Date Date of Influenza Vaccine: Dec 15, 2018 Seasonal Allergies Seasonal Allergies: No Past Medical History Surgeries: Yes (D&C, wisdom teeth) Appendectomy, Tubal Ligation Respiratory: No Cardiac: No Neurological: Yes (TBI WITH SHUNT PLACEMENT) Headaches /Migraines, Traumatic Brain Injury Genitourinary: No Gastrointestinal: No Musculoskeletal: No Endocrine: Yes Hypothyroidsim HEENT: No Cancer: No Psychosocial: Yes PTSD, Depression Integumentary: No Blood Disorders: No Adverse Reaction/Blood Tranf: No Family Medical History No Pertinent Family Hx Physical Exam Vital Signs Vital Signs - First Documented 08/18/20 14:02 Temp 36.4 Pulse 72 Resp 16 B/P (MAP) 152/100 (117) Pulse Ox 97 O2 Delivery Room Air Height, Weight, BMI Height: 5'4.00" Weight: 260lbs. oz. 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, alert, oriented x 3 Skin: normal color, warm/dry Progress/Results/Core Measures Results/Orders Lab Results Laboratory Tests Test 08/18/20 14:13 08/18/20 14:16 Range/Units Urine Opiates Screen NEGATIVE NEGATIVE Urine Oxycodone Screen NEGATIVE NEGATIVE Urine Methadone Screen NEGATIVE NEGATIVE Urine Propoxyphene Screen NEGATIVE NEGATIVE Urine Barbiturates Screen NEGATIVE NEGATIVE Ur Tricyclic Antidepressants Screen NEGATIVE NEGATIVE Urine Phencyclidine Screen NEGATIVE NEGATIVE Urine Amphetamines Screen NEGATIVE NEGATIVE Urine Methamphetamines Screen NEGATIVE NEGATIVE Urine Benzodiazepines Screen NEGATIVE NEGATIVE Urine Cocaine Screen NEGATIVE NEGATIVE Urine Cannabinoids Screen NEGATIVE NEGATIVE White Blood Count 9.7 4.3-11.0 10^3/uL Red Blood Count 5.93 H 4.35-5.85 10^6/uL Hemoglobin 15.9 11.5-16.0 G/DL Hematocrit 49 35-52 % Mean Corpuscular Volume 82 80-99 FL Mean Corpuscular Hemoglobin 27 25-34 PG Mean Corpuscular Hemoglobin Concent 33 32-36 G/DL Red Cell Distribution Width 14.7 H 10.0-14.5 % Platelet Count 396 130-400 10^3/uL Mean Platelet Volume 9.3 7.4-10.4 FL Immature Granulocyte % (Auto) 1 % Neutrophils (%) (Auto) 58 42-75 % Lymphocytes (%) (Auto) 31 12-44 % Monocytes (%) (Auto) 7 0-12 % Eosinophils (%) (Auto) 3 0-10 % Basophils (%) (Auto) 1 0-10 % Neutrophils # (Auto) 5.7 1.8-7.8 X 10^3 Lymphocytes # (Auto) 3.0 1.0-4.0 X 10^3 Monocytes # (Auto) 0.6 0.0-1.0 X 10^3 Eosinophils # (Auto) 0.3 0.0-0.3 10^3/uL Basophils # (Auto) 0.1 0.0-0.1 10^3/uL Immature Granulocyte # (Auto) 0.1 0.0-0.1 10^3/uL Erythrocyte Sedimentation Rate 12 0-20 MM/HR Sodium Level 139 135-145 MMOL/L Potassium Level 4.7 3.6-5.0 MMOL/L Chloride Level 104 98-107 MMOL/L Carbon Dioxide Level 23 21-32 MMOL/L Anion Gap 12 5-14 MMOL/L Blood Urea Nitrogen 8 7-18 MG/DL Creatinine 0.82 0.60-1.30 MG/DL Estimat Glomerular Filtration Rate > 60 BUN/Creatinine Ratio 10 Glucose Level 91 70-105 MG/DL Calcium Level 9.0 8.5-10.1 MG/DL Corrected Calcium 9.0 8.5-10.1 MG/DL Total Bilirubin 0.5 0.1-1.0 MG/DL Aspartate Amino Transf (AST/SGOT) 12 5-34 U/L Alanine Aminotransferase (ALT/SGPT) 13 0-55 U/L Alkaline Phosphatase 75 40-136 U/L C-Reactive Protein 2.37 H <0.50 MG/DL Total Protein 7.1 6.4-8.2 GM/DL Albumin 4.0 3.2-4.5 GM/DL LINDA Reyez DO Cbc With Automated Diff (08/18/20 14:07) Comprehensive Metabolic Panel (08/18/20 14:07) Drug Screen Stat (Urine) (08/18/20 14:07) Crp Fs (08/18/20 14:07) Erythrocyte Sedimentation Rate (08/18/20 14:07) Ns Iv 1000 Ml (Sodium Chloride 0.9%) (08/18/20 14:15) Prochlorperazine Injection (Compazine In (08/18/20 14:15) Diphenhydramine Injection (Benadryl Inje (08/18/20 14:15) Metoclopramide Injection (Reglan Injecti (08/18/20 14:15) Medications Given in ED Current Medications Medications Dose Ordered Sig/Jeramy Route Start Time Stop Time Status Last Admin Dose Admin Diphenhydramine HCl 50 mg ONCE ONCE IVP 08/18/20 14:15 08/18/20 14:16 DC 08/18/20 14:26 50 MG Metoclopramide HCl 10 mg ONCE ONCE IVP 08/18/20 14:15 08/18/20 14:16 DC 08/18/20 14:26 10 MG Prochlorperazine Edisylate 10 mg ONCE ONCE IV 08/18/20 14:15 08/18/20 14:16 DC 08/18/20 14:26 10 MG Vital Signs/I&O 08/18/20 14:02 Temp 36.4 Pulse 72 Resp 16 B/P (MAP) 152/100 (117) Pulse Ox 97 O2 Delivery Room Air Departure Communication (Admissions) Patient with URI sympt denies sinus pressure and headache currently on Cipro who presents with spots in her vision consistent with prior migraine headaches. IV fluids migraine cocktail given with resolution of ocular symptoms. Patient resting comfortably feels improved. Will continue therapeutic and supportive care at home with PCP follow-up. Return precautions reviewed. Patient verbalizes understanding agreement discharge instructions prior to departure. Impression Primary Impression: Upper respiratory tract infection Disposition: 01 HOME, SELF-CARE Condition: Stable Departure-Patient Inst. Decision time for Depature: 15:23 Referrals: WENDY WEAVER APRN (PCP) Primary Care Physician [facility] (Family) Primary Care Physician Patient Instructions: Bacterial Upper Respiratory Infection, Child (DC), Migraines in Adults Add. Discharge Instructions: You were evaluated in the emergency department for upper respiratory tract symptoms headache and vision changes. Your exam is consistent with an upper respiratory tract infection with migraine features. Please continue your current medications as prescribed and take tramadol and Compazine as needed for additional relief. Increase fluids and follow-up with your PCP in 3 days for reevaluation if symptoms persist. Return to the ED if new or worsening symptoms. All discharge instructions reviewed with patient and/or family. Voiced understanding. Scripts Tramadol HCl (Tramadol HCl) 50 Mg Tablet 50 MG PO Q6H, #10 TAB Prov: LINDA LR DO 08/18/20 Prochlorperazine Maleate (Compazine) 10 Mg Tablet 10 MG PO Q8H, #10 TAB Prov: LINDA LR DO 08/18/20 LINDA LR DO Aug 18, 2020 14:09
[2020-08-18] MEDS ORDERED: PROCHLORPERAZINE 10 MG/2ML INJ (COMPAZINE) IV ONE (14:15)
[2020-08-18] MEDS ORDERED: NS IV 1000 ML 1,000 ML IV SCH (14:15)
[2020-08-18] MEDS ORDERED: METOCLOPRAMIDE INJ 10 MG/2 ML (REGLAN) IVP ONE (14:15)
[2020-08-18] MEDS ORDERED: diphenhydrAMINE 50 MG/ML INJ (BENADRYL) IVP ONE (14:15)
[2020-08-18 14:38] LABS: AMPHETAMINE SCREEN, URINE NEGATIVE (NEGATIVE); BARBITURATE SCREEN URINE NEGATIVE (NEGATIVE); BENZODIAZEPINES SCREEN URINE NEGATIVE (NEGATIVE); CANNABINOID SCREEN, URINE NEGATIVE (NEGATIVE); COCAINE SCREEN URINE NEGATIVE (NEGATIVE); METHADONE STAT NEGATIVE (NEGATIVE); METHAMPHETAMINE SCREEN URINE S NEGATIVE (NEGATIVE); OPIATE SCREEN URINE NEGATIVE (NEGATIVE); OXYCODONE STAT NEGATIVE (NEGATIVE); PROPOXYPHENE STAT NEGATIVE (NEGATIVE); TRICYCLIC ANTIDEPRESSANTS SCRE NEGATIVE (NEGATIVE)
[2020-08-18 14:38] LABS: BASOPHILS # (AUTO) 0.1 10^3/uL (0.0-0.1); BASOPHILS % (AUTO) 1 % (0-10); EOSINOPHILS # (AUTO) 0.3 10^3/uL (0.0-0.3); EOSINOPHILS % (AUTO) 3 % (0-10); HEMATOCRIT 49 % (35-52); HEMOGLOBIN 15.9 G/DL (11.5-16.0); LYMPHOCYTES % (AUTO) 31 % (12-44); MEAN CORPUSCULAR HEMOGLOBIN 27 PG (25-34); MEAN CORPUSCULAR HGB CONC 33 G/DL (32-36); MEAN CORPUSCULAR VOLUME 82 FL (80-99); MEAN PLATELET VOLUME 9.3 FL (7.4-10.4); MONOCYTES # (AUTO) 0.6 X 10^3 (0.0-1.0); MONOCYTES % (AUTO) 7 % (0-12); NEUTROPHILS # (AUTO) 5.7 X 10^3 (1.8-7.8); NEUTROPHILS % (AUTO) 58 % (42-75); PLATELET COUNT 396 10^3/uL (130-400); WHITE BLOOD COUNT 9.7 10^3/uL (4.3-11.0)
[2020-08-18 14:57] LABS: CARBON DIOXIDE 23 MMOL/L (21-32); CHLORIDE 104 MMOL/L (98-107); POTASSIUM 4.7 MMOL/L (3.6-5.0); SODIUM 139 MMOL/L (135-145)
[2020-08-18 14:58] LABS: ALANINE AMINOTRANSFERASE 13 U/L (0-55); ALKALINE PHOSPHATASE 75 U/L (40-136); BILIRUBIN,TOTAL 0.5 MG/DL (0.1-1.0); BUN/CREATININE RATIO 10; CREATININE SERUM 0.82 MG/DL (0.60-1.30); GFR ESTIMATED > 60; GLUCOSE 91 MG/DL (70-105); TOTAL PROTEIN 7.1 GM/DL (6.4-8.2)
[2020-08-18 15:08] LABS: ERYTHROCYTE SEDIMENTATION RATE 12 MM/HR (0-20)
[2020-08-18] MEDS ORDERED: TRM50T PO (15:25)
[2020-08-18] MEDS ORDERED: PROC-1 PO (15:25)
[2020-08-18 15:29] VITALS: BP 146/87
== END 2020-08-18 15:28 | disposition home or self-care (01) ==
LOC: EDUNIT# 13:59 → ER FS 14:01
DX: J06.9 Acute upper respiratory infection, unspecified (principal); R59.0 Localized enlarged lymph nodes; Z86.69 Personal history of other diseases of the nervous system and sense organs
CPT/HCPCS: 36415; 80053; 80306; 85025; 85652; 86141; 99282